=== PATIENT | female | born 1965 | race American Indian/Alaskan Native ===

== ENCOUNTER 2017-02-01 00:09 | Emergency (ER) | payer MEDICARE ==
[2017-02-01 00:36] VITALS: BP 160/95
[2017-02-01 01:08] LABS: Hematocrit 42.1 % (30.3-42.9); Hemoglobin 13.9 gm/dl (10.1-14.3); Mean Corpuscular HGB Conc 33 % (30-34); Mean Corpuscular Hemoglobin 31 pg (28-32); Mean Corpuscular Volume 92 fl (79-97); Platelet Count 217 K/mm3 (140-440); Red Blood Count 4.57 M/mm3 (3.65-5.03); White Blood Count 7.5 K/mm3 (4.5-11.0)
[2017-02-01 01:21] LABS: Anion Gap 18 mmol/L; BUN/Creatinine Ratio 11.25; Blood Urea Nitrogen 9 mg/dL (7-17); Calcium 9.1 mg/dL (8.4-10.2); Carbon Dioxide 23 mmol/L (22-30); Chloride 103.2 mmol/L (98-107); Glucose 107 mg/dL (65-100); Sodium 140 mmol/L (137-145)
[2017-02-01 01:35] LABS: INR 0.92 (0.87-1.13)
[2017-02-01 01:36] LABS: Partial Thromboplastin Time 26.2 Sec. (24.2-36.6)
[2017-02-01 02:52] LABS: Anisocytosis 1+; Basophils % (Manual) 0 % (0.0-1.8); Blastocytes % (Manual) 0 %; Diff Status Complete; Eosinophils % (Manual) 0 % (0.0-4.3); Ovalocytes Rare
--- NOTE | 2017-02-02 00:23 | ED Elopement Review ---
ED Pt Elopement review - Results review Lab results: Laboratory Tests 02/01/17 02/01/17 02/01/17 00:36 00:45 00:45 WBC 7.5 RBC 4.57 Hgb 13.9 Hct 42.1 MCV 92 MCH 31 MCHC 33 RDW 14.0 Plt Count 217 Lymph % (Auto) Bottle Tester Lymph # Bottle Tester Add Manual Diff Complete Total Counted 100 Seg Neutrophils % Bottle Tester Seg Neuts % (Manual) 35.0 L Band Neutrophils % 1.0 Lymphocytes % (Manual) 56.0 H Reactive Lymphs % (Man) 0 Monocytes % (Manual) 4.0 Eosinophils % (Manual) 0 Basophils % (Manual) 0 Metamyelocytes % 4.0 Myelocytes % 0 Promyelocytes % 0 Blast Cells % 0 Nucleated RBC % Not Reportable Seg Neutrophils # Man 2.6 Band Neutrophils # 0.1 Lymphocytes # (Manual) 4.2 Abs React Lymphs (Man) 0.0 Monocytes # (Manual) 0.3 Eosinophils # (Manual) 0.0 Basophils # (Manual) 0.0 Metamyelocytes # 0.3 Myelocytes # 0.0 Promyelocytes # 0.0 Blast Cells # 0.0 WBC Morphology Not Reportable Hypersegmented Neuts Not Reportable Hyposegmented Neuts Not Reportable Hypogranular Neuts Not Reportable Smudge Cells Not Reportable Toxic Granulation Not Reportable Toxic Vacuolation Not Reportable Dohle Bodies Not Reportable Pelger-Huet Anomaly Not Reportable Kam Rods Not Reportable Platelet Estimate Appears normal Clumped Platelets Not Reportable Plt Clumps, EDTA Not Reportable Large Platelets Not Reportable Giant Platelets Not Reportable Platelet Satelliting Not Reportable Plt Morphology Comment Not Reportable RBC Morphology Not Reportable Dimorphic RBCs Not Reportable Polychromasia Not Reportable Hypochromasia Not Reportable Poikilocytosis Not Reportable Anisocytosis 1+ Microcytosis Not Reportable Macrocytosis Not Reportable Spherocytes Not Reportable Pappenheimer Bodies Not Reportable Sickle Cells Not Reportable Target Cells Not Reportable Tear Drop Cells Not Reportable Ovalocytes Rare Helmet Cells Not Reportable [place] Bodies Not Reportable [place] Rings Not Reportable Roma Cells Not Reportable Bite Cells Not Reportable Crenated Cell Not Reportable Elliptocytes Not Reportable Acanthocytes (Spur) Not Reportable Rouleaux Not Reportable Hemoglobin C Crystals Not Reportable Schistocytes Not Reportable Malaria parasites Not Reportable De Bodies Not Reportable Hem Pathologist Commnt No PT 12.3 INR 0.92 APTT 26.2 Thrombin Time 17.8 Sodium Potassium Chloride Carbon Dioxide Anion Gap BUN Creatinine Estimated GFR BUN/Creatinine Ratio Glucose POC Glucose 92 Calcium Troponin T 02/01/17 00:45 WBC RBC Hgb Hct MCV MCH MCHC RDW Plt Count Lymph % (Auto) Lymph # Add Manual Diff Total Counted Seg Neutrophils % Seg Neuts % (Manual) Band Neutrophils % Lymphocytes % (Manual) Reactive Lymphs % (Man) Monocytes % (Manual) Eosinophils % (Manual) Basophils % (Manual) Metamyelocytes % Myelocytes % Promyelocytes % Blast Cells % Nucleated RBC % Seg Neutrophils # Man Band Neutrophils # Lymphocytes # (Manual) Abs React Lymphs (Man) Monocytes # (Manual) Eosinophils # (Manual) Basophils # (Manual) Metamyelocytes # Myelocytes # Promyelocytes # Blast Cells # WBC Morphology Hypersegmented Neuts Hyposegmented Neuts Hypogranular Neuts Smudge Cells Toxic Granulation Toxic Vacuolation Dohle Bodies Pelger-Huet Anomaly Kam Rods Platelet Estimate Clumped Platelets Plt Clumps, EDTA Large Platelets Giant Platelets Platelet Satelliting Plt Morphology Comment RBC Morphology Dimorphic RBCs Polychromasia Hypochromasia Poikilocytosis Anisocytosis Microcytosis Macrocytosis Spherocytes Pappenheimer Bodies Sickle Cells Target Cells Tear Drop Cells Ovalocytes Helmet Cells Avila-[place] Bodies [place] Rings [place] Cells Bite Cells Crenated Cell Elliptocytes Acanthocytes (Spur) Rouleaux Hemoglobin C Crystals Schistocytes Malaria parasites De Bodies Hem Pathologist Commnt PT INR APTT Thrombin Time Sodium 140 Potassium 4.0 Chloride 103.2 Carbon Dioxide 23 Anion Gap 18 BUN 9 Creatinine 0.8 Estimated GFR > 60 BUN/Creatinine Ratio 11.25 Glucose 107 H POC Glucose Calcium 9.1 Troponin T < 0.010 - Call Back decision Pt Call Back Decision: No action required
== END 2017-02-01 00:57 | disposition left against medical advice (07) ==
LOC: ED 00:09
DX: R51 Headache (principal); H54.7 Unspecified visual loss; Z53.21 Procedure and treatment not carried out due to patient leaving prior to being seen by health care provider
CPT/HCPCS: 36415; 80048; 82962; 84484; 85007; 85025; 85610; 85670; 85730; 93005; 93010

== ENCOUNTER 2017-10-29 11:33 | Outpatient (CLI) | payer MEDICARE ==
--- NOTE | 2017-10-29 14:26 | Magnetic Resonance Report ---
MR CERVICAL SPINE WITHOUT CONTRAST HISTORY: Cervical radiculopathy TECHNIQUE: Multisequence, multiplanar MRI without contrast. FINDINGS: There is reversal of the normal cervical lordosis on the sagittal images. There is normal height and alignment of the vertebral bodies. Normal bone marrow signal. There is mild diffuse disc desiccation and narrowing. The facet joints are within normal limits. The cervical spinal cord is normal size and signal intensity throughout. C2-3: No abnormality. C3-4: No abnormality. C4-5: A focal midline annular tear and small disc protrusion are identified. The protrusion abuts the anterior thecal sac but does not displace the cord. C5-6: A moderate diffuse posterior bulging disc and mild to moderate bilateral uncovertebral spurring are identified. There is mild central canal narrowing at this level measuring 9.1 mm in AP dimension. Right neural foraminal narrowing is estimated at 50%. C6-7: A moderate-sized left paracentral disc protrusion is identified effaces the anterior thecal sac. No central canal stenosis. Left neural foraminal narrowing is estimated at 25-50%. C7-T1: No abnormality. IMPRESSION: Reversal of the normal cervical lordosis. Multilevel cervical spondylosis. Prominent bulging disc and uncovertebral spurring at C5-6 resulting in mild central canal narrowing. Moderate left paracentral disc protrusion at C6-7.
== END 2017-10-29 11:34 | disposition home or self-care (01) ==
LOC: MRI 11:33
PROVIDERS: ATTEND Specialist
DX: M50.121 Cervical disc disorder at C4-C5 level with radiculopathy (principal); M50.123 Cervical disc disorder at C6-C7 level with radiculopathy; M47.22 Other spondylosis with radiculopathy, cervical region
CPT/HCPCS: 72141